=== PATIENT | male | born 1995 | race Caucasian/White ===

== ENCOUNTER 2017-01-31 15:15 | Emergency (ER) | payer BC ==
[2017-01-31] MEDS ORDERED: Famotidine 20 MG/2 ML SDV IVPUSH ONE (15:19)
[2017-01-31] MEDS ORDERED: Sodium Chloride 0.9% 1,000 ML IV ONE (15:19)
[2017-01-31] MEDS ORDERED: Aspirin 81 MG Tab.Chew PO ONE (15:19)
[2017-01-31] MEDS ORDERED: Alum Hydrox/Mag Hydrox/Simeth 15 ML, Metoclopramide 5 MG, Lidocaine 2% 5 ML PO ONE ×3 (15:19)
[2017-01-31] MEDS ORDERED: Ketorolac 30 MG/ML SDV IVPUSH ONE (15:19)
--- NOTE | 2017-01-31 15:30 | EDM.PDOC ---
ED HPI GENERAL MEDICAL PROBLEM - General Chief Complaint: Chest Pain Stated Complaint: CHEST PAIN Time Seen by Provider: 01/31/17 15:20 Source of Information: Reports: Patient History Limitations: Reports: No Limitations - History of Present Illness INITIAL COMMENTS - FREE TEXT/NARRATIVE: History of present illness: [21-year-old male presenting with complaints of right-sided chest pain is like a band across his chest. Patient indicates that he is currently pain-free but that the pain does come and go and has had some level of chronicity for the last several years. Patient indicates he has sought medical treatment before for the same thing but he is unaware of any final diagnosis and he would like to be evaluated today to figure out what is going on.] Review of systems: As per history of present illness and below otherwise all systems reviewed and negative. Past medical history: As per history of present illness and as reviewed below otherwise noncontributory. Surgical history: As per history of present illness and as reviewed below otherwise noncontributory. Social history: No reported history of drug or alcohol abuse. Family history: As per history of present illness and as reviewed below otherwise noncontributory. Physical exam: HEENT: Atraumatic, normocephalic, pupils reactive, negative for conjunctival pallor or scleral icterus, mucous membranes moist, throat clear, neck supple, nontender, trachea midline. Lungs: Clear to auscultation, breath sounds equal bilaterally, chest nontender. Heart: S1S2, regular, negative for clicks, rubs, or JVD. Abdomen: Soft, nondistended, nontender. Negative for masses or hepatosplenomegaly. Negative for costovertebral tenderness. Pelvis: Stable nontender. Genitourinary: Deferred. Rectal: Deferred. Extremities: Atraumatic, negative for cords or calf pain. Neurovascular unremarkable. Neuro: Awake, alert, oriented. Cranial nerves II through XII unremarkable. Cerebellum unremarkable. Motor and sensory unremarkable throughout. Exam nonfocal. Global assessment is benign and patient did not have any active pain as described while here. Diagnostics: [CBC, CMP, troponin, EKG, chest x-ray, amylase, lipase] Therapeutics: [IV fluid, GI cocktail, Toradol, Pepcid] Impression: [Atypical chest pain] Plan: [Follow-up with primary care] Definitive disposition and diagnosis as appropriate pending reevaluation and review of above. chest pain Pain Score (Numeric/FACES): 1 - Related Data Allergies Allergy/AdvReac Type Severity Reaction Status Date / Time No Known Allergies Allergy Verified 01/31/17 15:19 Home Meds: Home Meds . [No Known Home Meds] 01/31/17 [History] Past Medical History HEENT History: Reports: None Cardiovascular History: Reports: None Other Respiratory History: stated lung problem but erick't remember the exact diagnosis Gastrointestinal History: Reports: None Genitourinary History: Reports: None Musculoskeletal History: Reports: None Neurological History: Reports: None Psychiatric History: Reports: None Endocrine/Metabolic History: Reports: None Hematologic History: Reports: None Immunologic History: Reports: None Oncologic (Cancer) History: Reports: None Dermatologic History: Reports: None - Infectious Disease History Infectious Disease History: Reports: Chicken Pox - Past Surgical History Head Surgeries/Procedures: Reports: None Social & Family History - Family History Family Medical History: Noncontributory - Tobacco Use Smoking Status *Q: Current Every Day Smoker Years of Tobacco use: 7 Packs/Tins Daily: 0.5 - Caffeine Use Caffeine Use: Reports: Coffee, Energy Drinks, Soda - Recreational Drug Use Recreational Drug Use: No ED ROS GENERAL - Review of Systems Review Of Systems: See Below (History of present illness) ED EXAM, GENERAL - Physical Exam Exam: See Below (See history of present illness) Course - Vital Signs Last Recorded V/S: Last Vital Signs Temp 36.9 C 01/31/17 15:19 Pulse 50 L 01/31/17 16:16 Resp 16 01/31/17 16:16 BP 134/72 01/31/17 16:16 Pulse Ox 98 01/31/17 16:16 - Orders/Labs/Meds Orders: Active Orders 24 hr Category Date Time Status EKG Documentation Completion [RC] STAT Care 01/31/17 15:19 Active Chest 2V [CR] Stat Exams 01/31/17 15:19 Taken Labs: Laboratory Tests 01/31/17 01/31/17 Range/Units 15:27 15:27 WBC 7.11 (4.0-11.0) K/uL RBC 5.10 (4.50-5.90) M/uL Hgb 15.7 (13.0-17.0) g/dL Hct 45.8 (38.0-50.0) % MCV 89.8 (80.0-98.0) fL MCH 30.8 (27.0-32.0) pg MCHC 34.3 (31.0-37.0) g/dL RDW Std Deviation 41.6 (28.0-62.0) fl RDW Coeff of Cindy 13 (11.0-15.0) % Plt Count 277 (150-400) K/uL MPV 9.10 (7.40-12.00) fL Neut % (Auto) 55.4 (48.0-80.0) % Lymph % (Auto) 32.8 (16.0-40.0) % [place] % (Auto) 10.0 (0.0-15.0) % Eos % (Auto) 1.4 (0.0-7.0) % Baso % (Auto) 0.4 (0.0-1.5) % Neut # (Auto) 3.9 (1.4-5.7) K/uL Lymph # (Auto) 2.3 (0.6-2.4) K/uL [place] # (Auto) 0.7 (0.0-0.8) K/uL Eos # (Auto) 0.1 (0.0-0.7) K/uL Baso # (Auto) 0.0 (0.0-0.1) K/uL Nucleated RBC % 0.0 /100WBC Nucleated RBCs # 0 K/uL Sodium 141 (136-146) mmol/L Potassium 3.5 (3.5-5.1) mmol/L Chloride 108 (98-110) mmol/L Carbon Dioxide 24 (21-31) mmol/L BUN 9 (6.0-23.0) mg/dL Creatinine 0.8 (0.6-1.5) mg/dL Est Cr Clr Drug Dosing 148.28 mL/min Estimated GFR (MDRD) > 60.0 ml/min Glucose 101 (60-110) mg/dL Calcium 9.5 (8.8-10.8) mg/dL Total Bilirubin 0.5 (0.1-1.5) mg/dL AST 18 (5-40) IU/L ALT 21 (8-54) IU/L Alkaline Phosphatase 90 (40-150) Troponin I < 0.10 (0.0-0.29) NG/ML Total Protein 7.5 (6.0-8.0) g/dL Albumin 4.4 (3.5-5.0) g/dL Globulin 3.1 (2.0-3.5) g/dL Albumin/Globulin Ratio 1.4 (1.3-2.8) Amylase 38 (10-90) U/L Lipase 15 (7-80) U/L Meds: Medications Discontinued Medications Generic Name Dose Route Start Last Admin Trade Name Rohini PRN Reason Stop Dose Admin Aspirin 324 mg 01/31/17 15:19 01/31/17 15:45 Aspirin PO 01/31/17 15:20 324 mg ONETIME ONE Administration Al Hydroxide/Mg Hydroxide 15 0 ml 01/31/17 15:19 01/31/17 15:45 ml/ Metoclopramide HCl 5 mg/ PO 01/31/17 15:20 25 each Lidocaine HCl 5 ml ONETIME ONE Administration Famotidine 20 mg 01/31/17 15:19 01/31/17 15:42 Pepcid IVPUSH 01/31/17 15:20 20 mg ONETIME ONE Administration Sodium Chloride 1,000 mls @ 999 mls/hr 01/31/17 15:19 01/31/17 15:42 Normal Saline IV 01/31/17 16:19 999 mls/hr .Bolus ONE Administration Ketorolac Tromethamine 30 mg 01/31/17 15:19 01/31/17 15:44 Toradol IVPUSH 01/31/17 15:20 30 mg ONETIME ONE Administration Departure - Departure Time of Disposition: 16:30 Disposition: Home, Self-Care 01 Condition: Good Clinical Impression: Atypical chest pain - Discharge Information Instructions: Nonspecific Chest Pain, [id number] Forms: ED Department Discharge Additional Instructions: The following information is given to patients seen in the emergency department who are being discharged to home. This information is to outline your options for follow-up care. We provide all patients seen in our emergency department with a follow-up referral. The need for follow-up, as well as the timing and circumstances, are variable depending upon the specifics of your emergency department visit. If you don't have a primary care physician on staff, we will provide you with a referral. We always advise you to contact your personal physician following an emergency department visit to inform them of the circumstance of the visit and for follow-up with them and/or the need for any referrals to a consulting specialist. The emergency department will also refer you to a specialist when appropriate. This referral assures that you have the opportunity for follow-up care with a specialist. All of these measure are taken in an effort to provide you with optimal care, which includes your follow-up. Under all circumstances we always encourage you to contact your private physician who remains a resource for coordinating your care. When calling for follow-up care, please make the office aware that this follow-up is from your recent emergency room visit. If for any reason you are refused follow-up, please contact the [facility] Emergency Department at and asked to speak to the emergency department charge nurse. Follow-up with the primary care provider for further deeper diagnostic studies and evaluation to help you to resolve this on again off again complaint has been plaguing in the last couple years [facility] [address] [place] [id number] Return to ED as needed as discussed - My Orders Last 24 Hours: My Active Orders 01/31/17 15:19 EKG Documentation Completion [RC] STAT Chest 2V [CR] Stat - Assessment/Plan Last 24 Hours: My Active Orders 01/31/17 15:19 EKG Documentation Completion [RC] STAT Chest 2V [CR] Stat
[2017-01-31 15:57] LABS: CHLORIDE,CL 108 mmol/L (98-110); SODIUM,NA 141 mmol/L (136-146)
--- NOTE | 2017-02-01 17:44 | CR ---
EXAM DATE: 01/31/17 PATIENT'S AGE: 21 Patient: DELVIS DAY Facility: [place], [place] Site . Site : 1993 Study: XRay Chest [id number] 4:02:39 PM Ordering Physician: Doctor Hurtado Final Report: INDICATION: CHEST PAIN TECHNIQUE: Chest radiograph 2 views COMPARISON: None FINDINGS: Cardiovascular and mediastinum: The cardiac silhouette is normal in appearance and size. Mediastinum is within normal limits. Lungs and pleural spaces: Both lungs are unremarkable in appearance. A small granuloma is noted in the right mid lung. No sign of pleural effusion. No pneumothorax is seen. Bones and soft tissues: No significant findings. IMPRESSION: 1. No acute cardiopulmonary disease seen. Dictated by: Jose Smith MD @ 01/31/2017 16:24:47 (Electronic Signature) Report Signed by Proxy. LEXIE
== END 2017-01-31 16:47 | disposition home or self-care (01) ==
LOC: MW.ED 15:15
DX: R07.89 Other chest pain (principal); F17.210 Nicotine dependence, cigarettes, uncomplicated
CPT/HCPCS: 36415; 71020; 80053; 82150; 83690; 84484; 85025; 93005; 96361; 96374; 96375; 99285; A9270; J1885; J7040; 99283

== ENCOUNTER 2017-09-13 13:30 | Emergency (ER) | payer BC ==
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
--- NOTE | 2017-09-13 14:18 | CR ---
Right knee 3 views Clinical history: Pain Comparison: None Findings: The medial lateral joint compartments are generally well preserved with no cortical disrupt ion identified suggest fracture. No definite joint effusion. Impression: No definite radiographic abnormality
== END 2017-09-13 14:39 | disposition home or self-care (01) ==
LOC: MW.ED 13:30
DX: S89.91XA Unspecified injury of right lower leg, initial encounter (principal); V92.09XA Drowning and submersion due to fall off unspecified watercraft, initial encounter
CPT/HCPCS: 73562-26-RT; 73562-RT; 99282; 99283